=== PATIENT | male | born 1925 | race Caucasian/White ===

== ENCOUNTER 2016-08-01 12:48 | Inpatient (IN) | payer OTHER ==
[~2016-08-01] VITALS: Ht 180.3 cm; Wt 93.4 kg
[~2016-08-01 12:48] MED LIST: ADVAIR 250-501 EACH INH; ASPIRIN CHILDRE81 MG PO; ASPIRIN EC81 M1 PO; ATENOLOL25 MG PO; ATENOLOL50 M1 PO; AUGMENTIN 500M500 MG PO; AUGMENTIN 875875 MG PO; CENTRUM SILVER1 EAC3 PO; COMBIVENT1 ARO INH; DUONEB 3 MG/3 ML3 ML INH; FINASTERIDE5 M1 PO; FLOMAX0.4 M1 PO; HYDROCHLOROTH12.5 M3 PO; LASIX20 MG PO; LOSARTAN POTAS100 M1 PO; LOSARTAN-HCTZ 100-25 PO; MEDROL4 M1 PO; NIFEDIPINE ER30 M1 PO; RED YEAST RICE600 MG PO; SYMBICORT 160/41 PUF INH; Senokot S PO; TRAMADOL HCL50 M1 PO; VALTREX1000 MG PO; VITAMIN D31000 UNI2 PO
--- NOTE | 2016-08-01 12:59 | NUR ---
ARRIVED VIA AMBULANCE, ALERT ORIENTED.STATES HX COPD-ON N02 2L AT HOME. INCREASED DIFF BREATHING SINCE TUESDAY, STATES CALLED DR ABDI,STARTED ON PREDNISONE AT HOME. NO IMPROVEMENT TODAY. EKG ON ARRIVAL, 02 2L ON 2L 02.
--- NOTE | 2016-08-01 13:24 | ED DYSPNEA/ASTHMA COMPLAINT ---
History of Present Illness General Chief Complaint: Dyspnea (COPD, CHF, Other) Stated Complaint: SOB Vital Signs & Intake/Output Vital Signs & Intake/Output Vital Signs Date Time Temp Pulse Resp B/P Pulse O2 O2 Flow FiO2 Ox Delivery Rate 08/01 1321 92 Nasal 2.0L Cannula 08/01 1257 96.3 74 22 180/78 95 Nasal 2.0L Cannula Allergies Coded Allergies: codeine (Severe, N/V 12/02/15) Reconcile Medications Albuterol Sulfate/Ipratropiu (Duoneb) 3 MG/3 ML NEB 1 AER INH COPD (Reported) Aspirin (Ecotrin*) 81 MG TABLET.DR 2 TAB PO QW HEART HEALTH (Reported) Atenolol 50 MG TABLET 1 TAB PO DAILY HEART (Reported) Budesonide/Formoterol Fumara (Symbicort 160-4.5 Mcg Inhaler) 160 MCG/4.5 MCG PUF 2 PUFF INH Q12 COPD (Reported) Cyanocobalamin (Vitamin B-12) 1,000 MCG TABLET 1 TAB PO DAILY SUPPLEMENT ( Reported) Finasteride 5 MG TABLET 1 TAB PO DAILY PROSTATE (Reported) Fluticasone/Salmeterol (Advair 250-50 Diskus) 1 EACH BLST.W.DEV 1 PUF INH BID BREATHING PROBLEMS (Reported) Hydrochlorothiazide 12.5 MG CAPSULE 1 CAP PO DAILY WATER PILL (Reported) IPRATROPIUM/ALBUTEROL SULFATE (Combivent Inhaler) 14.7 GM AER.W.ADAP 1 AER INH Q4-6 PRN PRN COPD (Reported) Losartan Potassium 100 MG TABLET 1 TAB PO DAILY HEART (Reported) Methylprednisolone (Medrol) 4 MG TABLET 1 TAB PO AD SHINLGES Multivit-Min/FA/Lycopen/Lutein (Centrum Silver Tablet) 1 EACH TABLET 1 TAB PO DAILY SUPPLEMENT (Reported) Nifedipine (Nifedical XL) 30 MG TAB.ER.24 1 TAB PO DAILY HEART (Reported) Red Yeast Rice 600 MG TABLET 2 TAB PO DAILY SUPPLEMENT (Reported) Tamsulosin Hydrochloride (Flomax) 0.4 MG CAP.ER.24H 1 CAP PO DAILY PROSTATE ( Reported) Triage Note: BIBA FROM HOME, WITH C/O COUGH, CONGESTION, SAW DR MOHR AND STARTED ON PREDNISONE WITHOUT EFFECT. 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 History of MRSA: No History of VRE: No History of CDIFF: No Surgical History Surgical History: non-contributory Psychosocial History Who do you live with Family What is your primary language Samoan Tobacco Use: Quit >30 days ago ETOH Use: denies use Illicit Drug Use: denies illicit drug use Family History Family History, If Any: MOTHER FH: heart attack Progress Plan of Care: Orders Procedure Date/time Status URINALYSIS 08/01 1450 Complete TROPONIN LEVEL 08/01 1324 Complete COMPREHENSIVE METABOLIC PANEL 08/01 1324 Complete CBC WITHOUT DIFFERENTIAL 08/01 1323 Complete EKG 08/01 1249 Active Laboratory Tests 08/01/16 1450: Urine Color YEL, Urine Clarity CLEAR, Urine pH 6.0, Ur Specific [place] 1.025, Urine Protein 100 H, Urine Ketones NEG, Urine Nitrite NEG, Urine Bilirubin NEG, Urine Urobilinogen 0.2, Ur Leukocyte Esterase NEG, Ur Microscopic SEDIMENT EXAMINED, Urine RBC RARE, Ur Epithelial Cells FEW, Urine Mucus FEW, Urine Hemoglobin SMALL H, Urine Glucose NEG 08/01/16 1330: Anion Gap 13, Estimated GFR 57 L, BUN/Creatinine Ratio 20.0, Glucose 165 H, Calcium 9.2, Total Bilirubin 0.9, AST 30, ALT 42, Alkaline Phosphatase 75, Troponin I < 0.01, Total Protein 6.7, Albumin 4.0, Globulin 2.7, Albumin/ Globulin Ratio 1.5, CBC w Diff MAN DIFF ORDERED, RBC 3.15 L, MCV 106.4 H, MCH 36.1 H, RDW 16.2 H, MPV 7.7, Gran % 93.1 H, Lymphocytes % 5.0 L, Monocytes % 1.6 L, Eosinophils % 0.1, Basophils % 0.2, Absolute Granulocytes 7.4 H, Segmented Neutrophils 77 H, Band Neutrophils 17 H, Absolute Lymphocytes 0.4 L , Lymphocytes 3 L, Monocytes 3, Absolute Monocytes 0.1 L, Absolute Eosinophils 0, Absolute Basophils 0, Nucleated RBCs 1 H, Platelet Estimate ADEQUATE, Hypochromic-Microcytic 2+, Poikilocytosis 1+, Anisocytosis 1+, Macrocytic Cells 2+, PUBS MCHC 34.0 Departure Departure Condition: Stable Referrals: FAVIO HICKS MD (PCP/Family) Departure Forms: Customer Survey General Discharge Information
--- NOTE | 2016-08-01 13:25 | NUR ---
EDMUNDO CORTEZ IN TO [facility].
--- NOTE | 2016-08-01 13:41 | ED DYSPNEA/ASTHMA COMPLAINT ---
History of Present Illness General Chief Complaint: Dyspnea (COPD, CHF, Other) Stated Complaint: SOB Source: patient, EMS Exam Limitations: no limitations Vital Signs & Intake/Output Vital Signs & Intake/Output Vital Signs Date Time Temp Pulse Resp B/P Pulse O2 O2 Flow FiO2 Ox Delivery Rate 08/02 1051 Nasal 2.0L Cannula 08/02 1050 95 Nasal 2.0L Cannula 08/02 1030 62 144/62 08/02 1028 62 144/62 08/02 0649 97.8 58 18 144/62 93 Nasal 2.0L Cannula 08/02 0000 95 Nasal 2.0L Cannula 08/01 2301 78 150/80 08/01 2212 97.9 60 18 138/64 95 08/01 1923 97.6 67 24 150/80 93 Nasal 2.0L Cannula 08/01 1923 95 Nasal 2.0L Cannula 08/01 1905 97.7 112 18 138/70 95 Room Air Room Air 08/01 1641 97.1 64 18 183/79 95 Nasal 2.0L Cannula 08/01 1321 92 Nasal 2.0L Cannula ED Intake and Output 08/02 0000 08/01 1200 Intake Total 150 Output Total 200 Balance -50 Intake, Oral 150 Output, Urine 200 Patient 206 lb Weight Allergies Coded Allergies: codeine (Severe, N/V 12/02/15) Triage Note: BIBA FROM HOME, WITH C/O COUGH, CONGESTION, SAW DR MOHR AND STARTED ON PREDNISONE WITHOUT EFFECT. Triage Nurses Notes Reviewed? yes Onset: Abrupt Duration: day(s): (4), constant, continues in ED Timing: recent history HPI: 89-year-old male with a history of COPD comes into emergency room with shortness of breath has been going on for past 3-4 days getting progressively worse. 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 Patient reports any type of ambulation at all causes him to be winded. Denies any chest pain. Denies any fever. Patient has been coughing with little mucus production. Patient has oxygen at home as needed but is not on a 24 hours. Patient reports over last 24 hours he's been using (YESENIA CORTEZ,EDMUNDO) Reconcile Medications Aspirin (Ecotrin*) 81 MG TABLET.DR 2 TAB PO QW HEART HEALTH (Reported) Atenolol 50 MG TABLET 1 TAB PO DAILY HEART (Reported) Finasteride 5 MG TABLET 1 TAB PO DAILY PROSTATE (Reported) Fluticasone/Salmeterol (Advair 250-50 Diskus) 1 EACH BLST.W.DEV 1 PUF INH BID COPD (Reported) Ipratropium/Albuterol Sulfate (Iprat-Albut 0.5-3(2.5) MG/3 Ml) 0.5 MG-3 MG (2.5 MG BASE)/3 ML AMPUL.NEB 1 VIAL INH Q6H PRN COPD (Reported) Ipratropium/Albuterol Sulfate (Combivent Respimat Inhal [place]) 20 MCG-100 MCG/ ACTUATION MIST.INHAL 1 PUFF INH DAILY PRN COPD (Reported) Losartan Potassium 100 MG TABLET 1 TAB PO DAILY HEART (Reported) Nifedipine (Nifedical XL) 30 MG TAB.ER.24 1 TAB PO DAILY HEART (Reported) Red Yeast Rice 600 MG TABLET 2 TAB PO DAILY SUPPLEMENT (Reported) Tamsulosin HCl (Flomax) 0.4 MG CAP.ER.24H 1 CAP PO AT BEDTIME PROSTATE ( Reported) (HUMPHREY MCCALL,KALLI) Past History Travel History Traveled to [place] past 21 day No Medical History Any Pertinent Medical History? 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 No (EDMUNDO TOUSSAINT) Review of Systems Review of Systems Constitutional: Reports: no symptoms. EENTM: Reports: no symptoms. Respiratory: Reports: see HPI. Cardiovascular: Reports: no symptoms. GI: Reports: no symptoms. Genitourinary: Reports: no symptoms. Musculoskeletal: Reports: no symptoms. Skin: Reports: no symptoms. Neurological/Psychological: Reports: no symptoms. Hematologic/Endocrine: Reports: no symptoms. Immunologic/Allergic: Reports: no symptoms. All Other Systems: Reviewed and Negative (EDMUNDO TOUSSAINT) Physical Exam Physical Exam General Appearance: well developed/nourished, no apparent distress, alert Head: atraumatic, normal appearance Eyes: Bilateral: normal appearance. Ears, Nose, Throat: normal pharynx, normal ENT inspection, hearing grossly normal Neck: normal inspection Respiratory: no respiratory distress, decreased breath sounds, wheezing Cardiovascular: regular rate/rhythm Extremities: normal inspection Neurologic/Psych: awake, alert, oriented x 3 Skin: intact, normal color Core Measures ACS in differential dx? No Severe Sepsis Present: No Septic Shock Present: No (EDMUNDO TOUSSAINT) Progress Differential Diagnosis: asthma, AMI, bronchitis, costochondritis, CHF, COPD, musculoskeletal pain, pericarditis, pulmonary embolism, pneumonia, pneumothorax, rib fracture, unstable angina Plan of Care: Orders Procedure Date/time Status Heart Healthy Diet 08/02 B Active RT: Reevaluation 08/02 1007 Active RT: Evaluation 08/02 1007 Active Change service to 08/02 0755 Active CBC WITHOUT DIFFERENTIAL 08/02 0600 Complete BASIC ELECTROLYTES PLUS BUN&CR 08/02 0600 Complete THERAPIST ORDERS 08/02 UNK Complete OXYGEN SETUP (GEN) 08/02 UNK Complete PT Evaluate & Treat 08/02 UNK Active Vital Signs 08/01 1925 Active Teach/Educate 08/01 1925 Active Nutritional Intake, Monitor 08/01 1925 Active Isolation 08/01 192 Active Intake & Output 08/01 192 Active Patient Care Conference 08/01 192 Active Activity/Ambulation 08/01 192 Active Pathway - chart 08/01 1849 Active RAPID VIRAL INFLUENZA A 08/01 1823 Complete Pathway - chart 08/01 1821 Active Patient Data 08/01 1821 Active Code Status 08/01 1821 Active Admit to inpatient 08/01 1716 Active Code Status 08/01 1716 Complete Patient Data 08/01 1614 Active Intake & Output 08/01 1552 Active URINALYSIS 08/01 1450 Complete TROPONIN LEVEL 08/01 1324 Complete COMPREHENSIVE METABOLIC PANEL 08/01 1324 Complete CBC WITHOUT DIFFERENTIAL 08/01 1324 Complete TRC EVALUATION (GEN) 08/01 UNK Complete House Staff 08/01 UNK Active VTE Mechanical Prophylaxis 08/01 UNK Active Vital Signs 01/08 UNK Active Current Medications Sig/Melquiades Start time Last Medication Dose Stop Time Status Admin Methylprednisolone 40 MG Q12 08/020 AC (Solumedrol) Acetaminophen 650 MG Q6P PRN 08/01 1900 AC (Tylenol) Laboratory Tests 08/02/16 0730: Anion Gap 15, Estimated GFR 57 L, BUN/Creatinine Ratio 24.2, CBC w Diff NO MAN DIFF REQ, RBC 3.30 L, MCV 106.1 H, MCH 35.9 H, RDW 15.1 H, MPV 7.8, Gran % 83.8 H, Lymphocytes % 12.1 L, Monocytes % 3.8, Eosinophils % 0.1, Basophils % 0.2, Absolute Granulocytes 4.2, Absolute Lymphocytes 0.6 L, Absolute Monocytes 0.2, Absolute Eosinophils 0, Absolute Basophils 0, PUBS MCHC 33.9 08/01/16 1450: Urine Color YEL, Urine Clarity CLEAR, Urine pH 6.0, Ur Specific [place] 1.025, Urine Protein 100 H, Urine Ketones NEG, Urine Nitrite NEG, Urine Bilirubin NEG, Urine Urobilinogen 0.2, Ur Leukocyte Esterase NEG, Ur Microscopic SEDIMENT EXAMINED, Urine RBC RARE, Ur Epithelial Cells FEW, Urine Mucus FEW, Urine Hemoglobin SMALL H, Urine Glucose NEG 08/01/16 1330: Anion Gap 13, Estimated GFR 57 L, BUN/Creatinine Ratio 20.0, Glucose 165 H, Calcium 9.2, Total Bilirubin 0.9, AST 30, ALT 42, Alkaline Phosphatase 75, Troponin I < 0.01, Total Protein 6.7, Albumin 4.0, Globulin 2.7, Albumin/ Globulin Ratio 1.5, CBC w Diff MAN DIFF ORDERED, RBC 3.15 L, MCV 106.4 H, MCH 36.1 H, RDW 16.2 H, MPV 7.7, Gran % 93.1 H, Lymphocytes % 5.0 L, Monocytes % 1.6 L, Eosinophils % 0.1, Basophils % 0.2, Absolute Granulocytes 7.4 H, Segmented Neutrophils 77 H, Band Neutrophils 17 H, Absolute Lymphocytes 0.4 L , Lymphocytes 3 L, Monocytes 3, Absolute Monocytes 0.1 L, Absolute Eosinophils 0, Absolute Basophils 0, Nucleated RBCs 1 H, Platelet Estimate ADEQUATE, Hypochromic-Microcytic 2+, Poikilocytosis 1+, Anisocytosis 1+, Macrocytic Cells 2+, PUBS MCHC 34.0 Diagnostic Imaging: Viewed by Me: Radiology Read. Discussed w/RAD: Radiology Read. Radiology Impression: EXAM TYPE: RAD - XRY-PORTABLE CHEST XRAY EXAMINATION: XR PORTABLE CHEST CLINICAL INFORMATION: Shortness of breath, cough and congestion. COPD exacerbation. COMPARISON: 12/02/[address] 01/23/2016. TECHNIQUE: AP portable upright view of the chest at 1:45 PM FINDINGS: Stable heart and mediastinum with enlarged cardiac silhouette and vascular ectasia. No pulmonary edema. Stable hyperinflation. Moderate emphysema on recent chest CT. Compressive atelectasis at the bases due to upper zone hyperinflation is a chronic and stable. No pneumonia. No effusion or pneumothorax. IMPRESSION: No acute cardiopulmonary process. Emphysema. Cardiomegaly Initial ED EKG: normal p-waves, normal sinus rhythm, rate (73) (EDMUNDO TOUSSAINT) Departure Departure Disposition: STILL A PATIENT Condition: Stable Clinical Impression Primary Impression: COPD exacerbation Secondary Impressions: Hypoxia Referrals: FAVIO HICKS MD (PCP/Family) Departure Forms: Customer Survey General Discharge Information Admission Note Spoke With: REHAN MCCALL,QUISPE Documentation of Exam: Documentation of any treatments & extenuating circumstances including Concerns Regarding Discharge (functional status, medication knowledge or non-compliance, living conditions, etc.) that warrant an admission rather than observation: Patient will require IV steroids. Supplemental oxygen. Pulmonary consultation. Patient is short of breath on exertion. Patient would do poorly as an outpatient. Patient lives by himself. Below his normal baseline function. (EDMUNDO TOUSSAINT) PA/TRIMMER HAND Co-Sign Statement Statement: ED Attending supervision documentation- [X] I saw and evaluated the patient. I have also reviewed all the pertinent lab results and diagnostic results. I agree with the findings and the plan of care as documented in the PA's/TRIMMER HAND's documentation. [X] I have reviewed the ED Record and agree with the PA's/TRIMMER HAND's documentation. [] Additions or exceptions (if any) to the PAs/TRIMMER HAND's note and plan are summarized below: [] (HUMPHREY MCCALL,KALLI) Critical Care Note Critical Care Note Critical Care Time: non-applicable (EDMUNDO TOUSSAINT)
--- NOTE | 2016-08-01 13:45 | NUR ---
PCXR DONE. BLOODWORK, SST,LAV,BLUE,[place] AND PINK TOP TUBES SENT TO LAB.
[2016-08-01 14:06] LABS: ABSOLUTE BASOPHIL COUNT 0 /CUMM (0.0-0.2); ABSOLUTE EOSINOPHIL COUNT 0 /CUMM (0.0-0.7); ABSOLUTE GRANULOCYTE CT 7.4 /CUMM (1.4-6.5); ABSOLUTE LYMPH COUNT 0.4 /CUMM (1.2-3.4); ABSOLUTE MONOCYTE COUNT 0.1 /CUMM (0.10-0.60); BASOPHIL % 0.2 % (0.0-2.0); EOSINOPHIL % 0.1 % (0-5); GRANULOCYTE % 93.1 % (42.2-75.2); HEMATOCRIT 33.5 % (42-52); MEAN CORPUSCULAR HGB 36.1 PG (27.0-31.0); MEAN CORPUSCULAR VOLUME 106.4 FL (80.0-94.0); MEAN PLATELET VOLUME 7.7 FL (7.4-10.4); PLATELET COUNT 237 /CUMM (130-400); RBC DISTRIBUTION WIDTH 16.2 % (11.5-14.5); RED BLOOD CELL CT 3.15 /CUMM (4.70-6.10)
--- NOTE | 2016-08-01 14:21 | RADIOLOGY REPORT ---
EXAMINATION: XR PORTABLE CHEST CLINICAL INFORMATION: Shortness of breath, cough and congestion. COPD exacerbation. COMPARISON: 12/02/[address] 01/23/2016. TECHNIQUE: AP portable upright view of the chest at 1:45 PM FINDINGS: Stable heart and mediastinum with enlarged cardiac silhouette and vascular ectasia. No pulmonary edema. Stable hyperinflation. Moderate emphysema on recent chest CT. Compressive atelectasis at the bases due to upper zone hyperinflation is a chronic and stable. No pneumonia. No effusion or pneumothorax. IMPRESSION: No acute cardiopulmonary process. Emphysema. Cardiomegaly
[2016-08-01] MEDS ORDERED: VITAMIN B-121000 MC3 PO (14:22)
--- NOTE | 2016-08-01 14:53 | NUR ---
URINE TRIO SENT TO LAB.
--- NOTE | 2016-08-01 15:12 | NUR ---
WALKING O2 ASSESMENT DONE 02 SAT 92 % RA PULSE 74 WALKING 02 SAT DROPPED TO 88%, PULSE REMAINED THE SAME.
--- NOTE | 2016-08-01 15:51 | NUR ---
PA YESENIA TO BEDSIDE TO DISCUSS RESULTS AND POC. PT AGREEABLE TO STAY IN HOSPITAL FOR FURTHER CARE WITH PHARMACEUTICAL ENGINEER.
--- NOTE | 2016-08-01 16:40 | NUR ---
PT MEDICATED PER EMAR.
--- NOTE | 2016-08-01 18:29 | NUR ---
PT HAS BED ASSIGNMENT 232. RN NOTIFIED.
--- NOTE | 2016-08-01 18:49 | History & Physical ---
REHAN MCCALL,[facility] 08/01/16 1469: General Information and HPI MD Statement: I have seen and personally examined JUSTA MCDONALD and documented this H&P. The patient is a 89 year old M who presented with a patient stated chief complaint of shortness of breath. Source of Information: patient Exam Limitations: no limitations History of Present Illness: This is a 89-year-old male with a past medical history of a COPD/using intermittent home oxygen, hypertension, borderline diabetes came in with a chief complaint of increased shortness of breath over the past couple of days. As per patient 4 days ago he first felt that his inhaler or not enough to keep up with his shortness of breath and he called Dr. Monica Saldivar office and he was prescribed short prednisone course, he has been taking the steroid pills but it did not have any effect on his breathing and he continued to be short of breath and decided to come to ER for further evaluation. He denied any cough, fever, chills. He denied any nausea, vomiting, abdominal pain, changes in bowel movements, urinary symptoms, sick contacts, recent travels. He follows Dr. Saldivar as his head silverman and Dr. Guardado as his nuclear physician. Allergies/Medications Allergies: Coded Allergies: codeine (Severe, N/V 12/02/15) Home Med list Aspirin (Ecotrin*) 81 MG TABLET. 2 TAB PO QW HEART HEALTH (Reported) Atenolol 50 MG TABLET 1 TAB PO DAILY HEART (Reported) Finasteride 5 MG TABLET 1 TAB PO DAILY PROSTATE (Reported) Fluticasone/Salmeterol (Advair 250-50 Diskus) 1 EACH BLST.W.DEV 1 PUF INH BID COPD (Reported) Ipratropium/Albuterol Sulfate (Iprat-Albut 0.5-3(2.5) MG/3 Ml) 0.5 MG-3 MG (2.5 MG BASE)/3 ML AMPUL.NEB 1 VIAL INH Q6H PRN COPD (Reported) Ipratropium/Albuterol Sulfate (Combivent Respimat Inhal [place]) 20 MCG-100 MCG/ ACTUATION MIST.INHAL 1 PUFF INH DAILY PRN COPD (Reported) Losartan Potassium 100 MG TABLET 1 TAB PO DAILY HEART (Reported) Nifedipine (Nifedical XL) 30 MG TAB.ER.24 1 TAB PO DAILY HEART (Reported) Red Yeast Rice 600 MG TABLET 2 TAB PO DAILY SUPPLEMENT (Reported) Tamsulosin HCl (Flomax) 0.4 MG CAP.ER.24H 1 CAP PO AT BEDTIME PROSTATE ( Reported) Compliance With Home Meds: GOOD Past History Travel History Traveled to [place] past 21 day No Medical History Neurological: NONE EENT: NONE Cardiovascular: hypertension Respiratory: COPD Gastrointestinal: NONE Hepatic: NONE Renal: NONE Musculoskeletal: NONE Psychiatric: NONE Endocrine: diabetes Blood Disorders: NONE Cancer(s): NONE HEADLINER INSTALLER/Reproductive: NONE History of MRSA: No History of VRE: No History of CDIFF: No Surgical History Surgical History: non-contributory Past Family/Social History Family History Relations & Conditions if any MOTHER FH: heart attack Psychosocial History Where do you live? Home Who Do You Live With? self Services at Home: None Primary Language: Kuwaiti Smoking Status: Former Smoker ETOH Use: denies use Illicit Drug Use: denies illicit drug use Living Will? yes Functional Ability ADLs Independent: dressing, eating, toileting, bathing. Ambulation: independent IADLs Independent: shopping, housework, finances, food prep, telephone, transportation , medication admin. Review of Systems Review of Systems Constitutional: Reports: see HPI. Exam & Diagnostic Data Last 24 Hrs of Vital Signs/I&O Vital Signs Date Time Temp Pulse Resp B/P Pulse O2 O2 Flow FiO2 Ox Delivery Rate 08/01 1905 97.7 112 18 138/70 95 Room Air Room Air 08/01 1641 97.1 64 18 183/79 95 Nasal 2.0L Cannula 08/01 1321 92 Nasal 2.0L Cannula 08/01 1257 96.3 74 22 180/78 95 Nasal 2.0L Cannula Intake & Output 08/01 1600 08/01 0800 08/01 0000 Intake Total Output Total Balance Patient 93.44 kg Weight Physical Exam General Appearance Alert, Oriented X3, Cooperative, No Acute Distress Cardiovascular Regular Rate, Normal S1, Normal S2, No Murmurs Lungs EXP WHEEZE B/L Abdomen Normal Bowel Sounds, Soft, No Tenderness Extremities No Clubbing, No Cyanosis, No Edema Last 24 Hrs of Labs/Miguel: Laboratory Tests 08/01/16 1450: Urine Color YEL, Urine Clarity CLEAR, Urine pH 6.0, Ur Specific [place] 1.025, Urine Protein 100 H, Urine Ketones NEG, Urine Nitrite NEG, Urine Bilirubin NEG, Urine Urobilinogen 0.2, Ur Leukocyte Esterase NEG, Ur Microscopic SEDIMENT EXAMINED, Urine RBC RARE, Ur Epithelial Cells FEW, Urine Mucus FEW, Urine Hemoglobin SMALL H, Urine Glucose NEG 08/01/16 1330: Anion Gap 13, Estimated GFR 57 L, BUN/Creatinine Ratio 20.0, Glucose 165 H, Calcium 9.2, Total Bilirubin 0.9, AST 30, ALT 42, Alkaline Phosphatase 75, Troponin I < 0.01, Total Protein 6.7, Albumin 4.0, Globulin 2.7, Albumin/ Globulin Ratio 1.5, CBC w Diff MAN DIFF ORDERED, RBC 3.15 L, MCV 106.4 H, MCH 36.1 H, RDW 16.2 H, MPV 7.7, Gran % 93.1 H, Lymphocytes % 5.0 L, Monocytes % 1.6 L, Eosinophils % 0.1, Basophils % 0.2, Absolute Granulocytes 7.4 H, Segmented Neutrophils 77 H, Band Neutrophils 17 H, Absolute Lymphocytes 0.4 L , Lymphocytes 3 L, Monocytes 3, Absolute Monocytes 0.1 L, Absolute Eosinophils 0, Absolute Basophils 0, Nucleated RBCs 1 H, Platelet Estimate ADEQUATE, Hypochromic-Microcytic 2+, Poikilocytosis 1+, Anisocytosis 1+, Macrocytic Cells 2+, PUBS MCHC 34.0 Assessment/Plan Assessment: This is a 89-year-old male with a past medical history of a COPD, hypertension, borderline diabetes came in with a chief complaint of increased shortness of breath over the past couple of days. Which is upon presentation temperature 96.3, pulse 74, respiratory rate 22, blood pressure 180/78, satting in high 90s on Pertinent labs H&H 11.4 and 33.5, creatinine 1.2, BUN 24. Chest x-ray showed no acute cardiopulmonary process. We'll admit the patient to general floor and monitor for the following conditions. Acute exacerbation of COPD: Oxygen supplementation as needed to keep saturation above 90. TRC/nebs as needed Started on IV Solu-Medrol 40 mg every 8 Started on azithromycin 250 mg daily Pulmonology consult with Dr. Saldivar in the morning History of hypertension: Continue home dose of nifedipine 30 mg daily and losartan 100 mg daily, atenolol 50 mg daily Benign prostatic hypertrophy: We'll continue home dose of finasteride 5 mg daily Diet : heart healthy Patient is DNR/DNI As Ranked By This Provider Problem List: 1. DVT prophylaxis 2. HTN (hypertension) 3. COPD (chronic obstructive pulmonary disease) 4. BPH (benign prostatic hyperplasia) Core Measures/Miscellaneous Acute Coronary Syndrome ACS Diagnosis: No Cerebrovascular Accident CVA/TIA Diagnosis: No Congestive Heart Failure CHF Diagnosis: No Venous Thromboembolism VTE Risk Factors: Acute medical illness, Age > 40 VTE Prophylaxis Ordered Inpt: Pharm- Heparin No Mech VTE prophylaxis d/t: No contraindications No VTE Pharm Prophylaxis d/t: No contraindications VTE Diagnosis: No VTE Type: NONE VTE Confirmed by (Test): NONE Severe Sepsis Severe Sepsis Present: No Septic Shock Septic Shock Present: No Miscellaneous Documentation Attending Case Discussed With: BRITTANEY VAN MD Primary Care Physician: FAVIO HICKS MD Patient sees these Specialists . Level of Patient Care: General Medicine BRITTANEY VAN MD 08/01/161943: Attending MD Review Statement Attending Statement Attending MD Statement: examined this patient, discuss w/resident/PA/SECURITY CONTROL ROOM OFFICER, agreed w/resident/PA/SECURITY CONTROL ROOM OFFICER, reviewed EMR data (avail), discussed with nursing, reviewed images Attending Assessment/Plan: 89-year-old male with a past medical history of hypertension, COPD intermittently using home oxygen, borderline diabetes who presented to the ED with complaints of increased difficulty in breathing over the last 4-5 days, failed out patient therapy with steroids from Dr. Womack. Patient is a non smoker, denies any sick contacts, chest pain, palpitations, any urinary or bowel irregularities. On examination he was found to be afebrile, AOX3, S1S2 audible with no murmurs, expiratory wheeze on lung examination with no lower extremity edema, lab work with no leucocytosis, chest xray with no infilatration Problem List: 1. COPD 2. Hypertension Plan: - will admit to the [facility] for COPD exacerbation - will start on IV solumedrol 40 mg IV Q8, - emprirical treatment with Azithromycin - TRC nebs - rapid flu - supplemental oxygen to keep O2 sat> 92% - continue the rest of her home medications - S[facility] for DVT prophylaxis - DNI/DNR DENIA ABEBE MD 08/01/162025: Resident Review Statement Resident Statement: examined this patient, discussed with spring intern, agreed with spring intern Other Findings: This is an 89-year-old male with a past medical history of hypertension, COPD intermittently using home oxygen, borderline diabetes who presented to the ED with complaints of increased difficult a breathing over the last 4-5 days. He called Steven Saldivar MD 2 days ago and was prescribed Medrol Dosepak which he states did not improve his symptoms. He presented to the ED because he continued to use his nebulizer more than 2-4 times per day. Does not report any sick contacts, does not smoke, denies any chest pain, palpitations, abdominal pain or trouble with urination or bowel movements. Problem list: * COPD exacerbation * Hypertension * BPH Plan: * Admit to general medicine for COPD exacerbation * Solu-Medrol 40 every 8, azithromycin * Continue home medication * Please inform Drs. Saldivar/Diamond in the a.m. * DVT prophylaxis: Heparin subcutaneous * Pain pathway: Tylenol when necessary * CODE STATUS: DNR/DNI
[2016-08-01] MEDS ORDERED: IPRAT-ALBUT 0.5-3 ML INH (18:58)
[2016-08-01] MEDS ORDERED: COMBIVENT RESPIM4 GM INH (18:59)
--- NOTE | 2016-08-01 19:08 | NUR ---
REPORT GIVEN TO RADHA RUIZ. [facility] CALLED FOR PT TRANSPORT.
[2016-08-01 19:23] VITALS: BP 150/80
--- NOTE | 2016-08-01 19:26 | Admission Certification ---
Admission Certification Certification Statement - As attending physician, I certify that at the time of - admission, based on clinical presentation, severity of - symptoms, need for further diagnostic testing and - therapeutic interventions, and risk of adverse outcomes - without in-hospital treatment, in my clinical assessment, - this patient requires an acute hospital stay for a minimum - of two nights or longer. I have also considered psychsocial - factors such as support system, advanced age, financial - issues, cognitive issues, and failed out-patient treatments, - past re-admission history, safety of patient, and lack of - compliance as applicable. Specific rationale supporting this admission is: COPD exacerbation
[2016-08-01 22:12] VITALS: BP 138/64
--- NOTE | 2016-08-02 00:59 | NUR ---
1922 PATIENT ARRIVED TO FLOOR BED LOW AND LOCKED. CALL LIGHT WITHIN REACH. ALERT AND ORIENTED X 3. VITAL SIGNS STABLE. ON 2L O2 VIA NC NO DISTRESS NOTED. WILL CONTINUE TO MONITOR
[2016-08-02 06:49] VITALS: BP 144/62
--- NOTE | 2016-08-02 07:37 | PN- Housestaff ---
REHAN MCCALL,[facility] 08/02/16 0737: Subjective Follow-up For: COPD exacerbation Subjective: Patient seen and examined this morning. He was sitting comfortably in chair eating his breakfast. In no acute distress. No shortness of breath, but remains on 2 L nasal cannula oxygen saturating high 90s. Afebrile other vitals remained within normal limits. No other complaints Review of Systems Constitutional: Denies: chills, fever. Cardiovascular: Denies: chest pain, palpitations. Respiratory: Reports: see HPI, cough, short of breath, sputum production. Gastrointestinal: Denies: abdominal pain, constipation, diarrhea, nausea, vomiting. Genitourinary: Denies: dysuria, frequency. Objective Last 24 Hrs of Vital Signs/I&O Vital Signs Date Time Temp Pulse Resp B/P Pulse O2 O2 Flow FiO2 Ox Delivery Rate 08/02 1414 97.4 63 20 140/70 95 08/02 1051 Nasal 2.0L Cannula 08/02 1050 95 Nasal 2.0L Cannula 08/02 1030 62 144/62 08/02 1028 62 144/62 08/02 0649 97.8 58 18 144/62 93 Nasal 2.0L Cannula 08/02 0000 95 Nasal 2.0L Cannula 08/01 2301 78 150/80 08/01 2212 97.9 60 18 138/64 95 08/01 1923 97.6 67 24 150/80 93 Nasal 2.0L Cannula 08/01 1923 95 Nasal 2.0L Cannula 08/01 1905 97.7 112 18 138/70 95 Room Air Room Air Intake & Output 08/02 1600 08/02 0800 08/02 0000 Intake Total 240 150 Output Total 200 Balance 240 -50 Intake, Oral 240 150 Output, Urine 200 Patient 93.44 kg Weight Physical Exam General Appearance: Alert, Oriented X3, Cooperative, No Acute Distress Cardiovascular: Regular Rate, Normal S1, Normal S2 Lungs: mild expiratory wheeze bilaterally Abdomen: Normal Bowel Sounds, Soft, No Tenderness Extremities: No Clubbing, No Cyanosis, No Edema Current Medications: Current Medications Sig/Melquiades Start time Last Medication Dose Route Stop Time Status Admin Acetaminophen 650 MG Q6P PRN 08/01 1900 AC PO Albuterol Sulfate 3 ML TID 08/02 1600 AC 08/02 INH 1049 Aspirin Buffered 162 MG ONCE A WEEK 08/01 1845 AC 08/01 PO 2300 Atenolol 50 MG DAILY 08/02 1000 AC 08/02 PO 1031 Azithromycin 500 MG DAILY@1900 08/01 1900 AC 08/01 Sodium Chloride 250 ML IV 2338 Finasteride 5 MG DAILY 08/02 1000 AC 08/02 PO 1029 Guaifenesin 600 MG Q12 08/02 1000 AC 08/02 PO 1030 Heparin Sodium 5,000 UNIT Q8 08/01 2200 AC 08/02 (Porcine) SC 1601 Ipratropium [place] 2.5 ML TID 08/02 1600 AC 08/02 INH 1049 Losartan Potassium 100 MG DAILY 08/02 1000 AC 08/02 PO 1028 Methylprednisolone 40 MG Q12 08/02 2200 AC IV Methylprednisolone 40 MG Q8 08/01 2200 TX 08/02 IV 0533 Nifedipine 30 MG DAILY 08/02 1000 AC 08/02 PO 1030 Patient Medication 1 ED .STK-MED ONE 08/02 1358 [facility] ED 08/02 1359 Patient Medication 1 UNIT ONE NR 08/01 1900 [facility] ED 08/01 193 Patient Medication 1 UNIT ONE NR 08/01 1900 [facility] ED 08/01 1930 Patient Medication 1 UNIT ONE NR 08/01 1900 [facility] ED 08/01 1930 Patient Medication 1 UNIT ONE NR 08/01 1830 [facility] ED 08/01 1900 Tamsulosin HCl 0.4 MG AT BEDTIME 08/01 220 AC 08/01 PO 2301 Last 24 Hrs of Lab/Miguel Results Last 24 Hrs of Labs/Mics: Laboratory Tests 08/02/16 0730: Anion Gap 15, Estimated GFR 57 L, BUN/Creatinine Ratio 24.2, CBC w Diff NO MAN DIFF REQ, RBC 3.30 L, MCV 106.1 H, MCH 35.9 H, RDW 15.1 H, MPV 7.8, Gran % 83.8 H, Lymphocytes % 12.1 L, Monocytes % 3.8, Eosinophils % 0.1, Basophils % 0.2, Absolute Granulocytes 4.2, Absolute Lymphocytes 0.6 L, Absolute Monocytes 0.2, Absolute Eosinophils 0, Absolute Basophils 0, PUBS MCHC 33.9 Assessment/Plan Assessment: This is a 89-year-old male with a past medical history of a COPD, hypertension, borderline diabetes came in with a chief complaint of increased shortness of breath over the past couple of days. Which is upon presentation temperature 96.3, pulse 74, respiratory rate 22, blood pressure 180/78, satting in high 90s on Pertinent labs H&H 11.4 and 33.5, creatinine 1.2, BUN 24. Chest x-ray showed no acute cardiopulmonary process. We'll admit the patient to general floor and monitor for the following conditions. Acute exacerbation of COPD: Oxygen supplementation as needed to keep saturation above 90. TRC/nebs as needed Started on IV Solu-Medrol 40 mg every 8>> tapered to every 12 hr Started on azithromycin 250 mg daily History of hypertension: Continue home dose of nifedipine 30 mg daily and losartan 100 mg daily, atenolol 50 mg daily Benign prostatic hypertrophy: We'll continue home dose of finasteride 5 mg daily Diet : heart healthy Patient is DNR/DNI Problem List: 1. COPD exacerbation Pain Ratin Pain Location: none Pain Goal: Remain pain free Pain Plan: Mild pain pathway Tomorrow's Labs & Rationales: None JIMBO MCCALL,[facility] 08/02/16 1448: Attending MD Review Statement Attending Statement Attending MD Statement: examined this patient, discuss w/resident/PA/DIRECTOR OF EMPLOYER SERVICES, agreed w/resident/PA/DIRECTOR OF EMPLOYER SERVICES, reviewed EMR data (avail), discussed with nursing, discussed with case mgmt, amended to note Attending Assessment/Plan: Patient seen and examined. Resting comfortably and not in acute distress. He reports feeling better. On examination he has fair entry bilaterally with mild expiratory rhonchi. We will continue bronchodilator therapy and intravenous steroids. He continues to do well tomorrow we'll begin his steroid taper. Continue oxygen supplementation as needed.
[2016-08-02 08:41] LABS: ABSOLUTE BASOPHIL COUNT 0 /CUMM (0.0-0.2); ABSOLUTE EOSINOPHIL COUNT 0 /CUMM (0.0-0.7); ABSOLUTE GRANULOCYTE CT 4.2 /CUMM (1.4-6.5); ABSOLUTE LYMPH COUNT 0.6 /CUMM (1.2-3.4); ABSOLUTE MONOCYTE COUNT 0.2 /CUMM (0.10-0.60); BASOPHIL % 0.2 % (0.0-2.0); EOSINOPHIL % 0.1 % (0-5); GRANULOCYTE % 83.8 % (42.2-75.2); MEAN CORPUSCULAR HGB 35.9 PG (27.0-31.0); MEAN CORPUSCULAR HGB CONC 33.9 G/DL (33.0-37.0); MEAN CORPUSCULAR VOLUME 106.1 FL (80.0-94.0); MEAN PLATELET VOLUME 7.8 FL (7.4-10.4); PLATELET COUNT 257 /CUMM (130-400); RBC DISTRIBUTION WIDTH 15.1 % (11.5-14.5)
[2016-08-02 14:14] VITALS: BP 140/70
[2016-08-02 22:22] VITALS: BP 120/70
[2016-08-03 07:03] VITALS: BP 120/70
--- NOTE | 2016-08-03 07:40 | PN- Housestaff ---
REHAN MCCALL,[facility] 08/03/16 0740: Subjective Follow-up For: COPD exacerbation Subjective: Patient seen and examined this morning. He was sitting in his chair no acute distress eating his breakfast. He reported feeling very good, names on 2 L of nasal cannula oxygen setting and high 90s. Afebrile vitals within normal limits. He endorses nonproductive cough. Review of Systems Constitutional: Denies: chills, fever. Cardiovascular: Denies: chest pain, palpitations. Respiratory: Reports: see HPI, cough. Denies: short of breath, sputum production. Gastrointestinal: Denies: abdominal pain, constipation, diarrhea, nausea, vomiting. Objective Last 24 Hrs of Vital Signs/I&O Vital Signs Date Time Temp Pulse Resp B/P Pulse O2 O2 Flow FiO2 Ox Delivery Rate 08/03 1428 97.1 45 22 152/60 98 Nasal 6.0L Cannula 08/03 1342 96 Nasal 2.0L Cannula 08/03 0931 62 142/70 08/03 0930 62 142/70 08/03 0800 96 Nasal 2.0L Cannula 08/03 0703 97.6 67 19 120/70 96 Nasal 2.0L Cannula 08/03 0000 Nasal 2.0L Cannula 08/02 2222 97.4 67 20 120/70 96 Nasal Cannula 08/02 2107 60 138/60 08/02 1955 95 Nasal 2.0L Cannula Intake & Output 08/03 1600 08/03 0800 08/03 0000 Intake Total 1000 100 120 Output Total Balance 1000 100 120 Intake, IV 20 Intake, Oral 1000 100 100 Physical Exam General Appearance: Alert, Oriented X3, Cooperative, No Acute Distress Cardiovascular: Regular Rate, Normal S1, Normal S2, No Murmurs Lungs: Clear to Auscultation, Normal Air Movement Abdomen: Normal Bowel Sounds, Soft, No Tenderness Extremities: No Clubbing, No Cyanosis, No Edema Current Medications: Current Medications Sig/Melquiades Start time Last Medication Dose Route Stop Time Status Admin Acetaminophen 650 MG Q6P PRN 08/01 1899 AC PO Albuterol Sulfate 3 ML TID 08/02 1600 AC 08/03 INH 1340 Aspirin Buffered 162 MG ONCE A WEEK 08/01 1845 AC 08/01 PO 2300 Atenolol 50 MG DAILY 08/02 1000 AC 08/03 PO 0930 Azithromycin 500 MG DAILY@1900 08/01 1900 AC 08/02 Sodium Chloride 250 ML IV 1838 Finasteride 5 MG DAILY 08/02 1000 AC 08/03 PO 0930 Guaifenesin 600 MG Q12 08/02 1000 AC 08/03 PO 0930 Heparin Sodium 5,000 UNIT Q8 08/01 220 AC 08/03 (Porcine) SC 1348 Ipratropium [place] 2.5 ML TID 08/02 1600 AC 08/03 INH 1340 Losartan Potassium 100 MG DAILY 08/02 1000 AC 08/03 PO 0931 Methylprednisolone 40 MG Q12 08/02 2200 AC 08/03 IV 0930 Nifedipine 30 MG DAILY 08/02 1000 AC 08/03 PO 0930 Tamsulosin HCl 0.4 MG AT BEDTIME 08/01 2199 AC 08/02 PO 2107 Assessment/Plan Assessment: This is a 89-year-old male with a past medical history of a COPD, hypertension, borderline diabetes came in with a chief complaint of increased shortness of breath over the past couple of days. Which is upon presentation temperature 96.3, pulse 74, respiratory rate 22, blood pressure 180/78, satting in high 90s on Pertinent labs H&H 11.4 and 33.5, creatinine 1.2, BUN 24. Chest x-ray showed no acute cardiopulmonary process. We'll admit the patient to general floor and monitor for the following conditions. Acute exacerbation of COPD: Oxygen supplementation as needed to keep saturation above 90. TRC/nebs as needed Started on IV Solu-Medrol 40 mg every 8>> tapered to every 12 hr, start by mouth tomorrow and then advise patient to complete the taper upon discharge. He is advised to follow-up with his vision and Dr. Saldivar upon discharge. Azithromycin 500 mg daily, to complete a five-day course. History of hypertension: Continue home dose of nifedipine 30 mg daily and losartan 100 mg daily, atenolol 50 mg daily Benign prostatic hypertrophy: We'll continue home dose of finasteride 5 mg daily Diet : heart healthy Patient is DNR/DNI Problem List: 1. COPD (chronic obstructive pulmonary disease) 2. HTN (hypertension) 3. COPD exacerbation Pain Ratin Pain Location: None Pain Goal: Remain pain free Pain Plan: Mild pain pathway Tomorrow's Labs & Rationales: None JIMBO MCCALL,[facility] 08/03/16 1210: Attending MD Review Statement Attending Statement Attending MD Statement: examined this patient, discuss w/resident/PA/BEER COOLER, agreed w/resident/PA/BEER COOLER, reviewed EMR data (avail), discussed with nursing, discussed with case mgmt, amended to note Attending Assessment/Plan: Patient reports feeling much better. Reports mild cough. Denies dizziness on exertion while ambulating with in the room. Denies chest pain. He remains afebrile and hemodynamically stable. He saturating 96% on 2 L of oxygen. On examination he has adequate entry bilaterally with no added sounds. At this point we will proceed to weaning down his Solu-Medrol to twice daily today. If patient continues to do well he'll be transitioned to prednisone tomorrow and possibly discharged. I have advised that he should ambulate outside of his room today and we will assess his pulse oximetry on room air at rest and with ambulation. Discontinue IV azithromycin and begin on oral azithromycin to complete a total of 5 days of therapy.
--- NOTE | 2016-08-03 11:15 | Patient Discharge Instructions ---
Discharge Instructions General Discharge Information You were seen/treated for: COPD exacerbation Special Instructions: Please schedule a follow-up appointment with your Primary care physician and Steven Saldivar MD in one week. Please finish prednisone taper as directed Diet Recommended Diet: Heart Healthy Activity Activity Self Limited: Yes Acute Coronary Syndrome Inclusion Criteria At DC or during hospital stay patient has or had the following: ACS DIAGNOSIS No Discharge Core Measures Meds if any: Prescribed or Continued at Discharge Meds if any: NOT Prescribed or Continued at Discharge Congestive Heart Failure Inclusion Criteria At DC or during hospital stay patient has or had the following: CHF DIAGNOSIS No Discharge Core Measures Meds if any: Prescribed or Continued at Discharge Meds if any: NOT Prescribed or Continued at Discharge Cerebrovascular accident Inclusion Criteria At DC or during hospital stay patient has or had the following: CVA/TIA Diagnosis No Discharge Core Measures Meds if any: Prescribed or Continued at Discharge Meds if any: NOT Prescribed or Continued at Discharge Venous thromboembolism Inclusion Criteria VTE Diagnosis No VTE Type NONE VTE Confirmed by (Test) NONE Discharge Core Measures - Per Current guidelines, there needs to be overlap - treatment for the first 5 days of Warfarin therapy. - If discharged on Warfarin prior to 5 days of - overlap therapy, the patient will need to be - assessed for post discharge needs including - *Post discharge parental anticoagulation - *Warfarin and/or parental anticoagulation education - *Follow up date to check INR post discharge At least 5 days overlap therapy as Inpatient No Meds if any: Prescribed or Continued at Discharge Note: Overlap Therapy is Warfarin and Anticoagulant Meds if any: NOT Prescribed or Continued at Discharge
[2016-08-03] MEDS ORDERED: PREDNISONE10 M2 PO (11:19)
[2016-08-03] MEDS ORDERED: AZITHROMYCIN250 M1 PO (11:45)
[2016-08-03 14:28] VITALS: BP 152/60
--- NOTE | 2016-08-03 14:59 | NUR ---
O2 SAT 85 ON ROOM AIR WITH AMBULATION, O2 SAT 92 ON RA AT REST, O2 PLACED BACK AT 2 LITERS VIA N/C. O2 SAT 95 ON 2 LITERS. NOTIFIED OF RESULTS
[2016-08-03] MEDS ORDERED: SPIRIVA18 MCG INH (16:08)
[2016-08-03 22:31] VITALS: BP 132/66
[2016-08-04 06:33] VITALS: BP 110/60
--- NOTE | 2016-08-04 08:54 | PN- Housestaff ---
REHAN MCCALL,[facility] 08/04/16 0854: Subjective Follow-up For: COPD exacerbation Subjective: pt seen and examined this AM. he was sitting in chair comfortably, his ambulatory sats were around 88% yesterday, continues to be on 2 L of nasal cannula oxygen setting and mid 90s upon rest, dizziness to have cough productive of scant sputum. Afebrile white count has been stable. Review of Systems Constitutional: Denies: chills, fever. Cardiovascular: Denies: chest pain, palpitations. Respiratory: Reports: cough, sputum production. Denies: short of breath. Gastrointestinal: Denies: abdominal pain, constipation, diarrhea, nausea, vomiting. Genitourinary: Reports: no symptoms. Musculoskeletal: Reports: no symptoms. Objective Last 24 Hrs of Vital Signs/I&O Vital Signs Date Time Temp Pulse Resp B/P Pulse O2 O2 Flow FiO2 Ox Delivery Rate 08/04 0920 68 130/70 08/04 0919 68 130/70 08/04 0850 95 Nasal 2.0L Cannula 08/04 0800 94 Nasal 2.0L Cannula 08/04 0633 97.4 56 20 110/60 94 Nasal 2.0L Cannula 08/04 0000 96 Nasal 2.0L Cannula 08/03 2231 97.6 57 20 132/66 96 Nasal 2.0L Cannula 08/03 2050 97 Nasal 2.0L Cannula 08/03 1600 94 Nasal 2.0L Cannula 08/03 1428 97.1 45 22 152/60 98 Nasal 6.0L Cannula 08/03 1342 96 Nasal 2.0L Cannula Intake & Output 08/04 1600 08/04 0800 08/04 0000 Intake Total 0 480 Output Total Balance 0 480 Intake, IV 0 Intake, Oral 0 480 Number 0 1 Bowel Movements Physical Exam General Appearance: Alert, Oriented X3, Cooperative, No Acute Distress Lungs: Clear to Auscultation, Normal Air Movement Abdomen: Normal Bowel Sounds, Soft, No Tenderness Extremities: No Clubbing, No Cyanosis, No Edema Current Medications: Current Medications Sig/Melquiades Start time Last Medication Dose Route Stop Time Status Admin Acetaminophen 650 MG Q6P PRN 08/01 1900 AC PO Albuterol Sulfate 3 ML TID 08/02 1600 AC 08/04 INH 0844 Aspirin Buffered 162 MG ONCE A WEEK 08/01 1845 AC 08/01 PO 2300 Atenolol 50 MG DAILY 08/02 1000 AC 08/04 PO 0919 Azithromycin 250 MG DAILY 08/03 1606 AC 08/04 PO 0919 Azithromycin 500 MG DAILY@1900 08/01 1900 DC 08/02 Sodium Chloride 250 ML IV 1838 Finasteride 5 MG DAILY 08/02 1000 AC 08/04 PO 0920 Guaifenesin 600 MG Q12 08/02 1000 AC 08/04 PO 0919 Heparin Sodium 5,000 UNIT Q8 08/01 2200 AC 08/04 (Porcine) SC 0548 Ipratropium [place] 2.5 ML TID 08/02 1600 AC 08/04 INH 0850 Losartan Potassium 100 MG DAILY 08/02 1000 AC 08/04 PO 0919 Methylprednisolone 40 MG Q12 08/02 2200 DC 08/03 IV 2124 Nifedipine 30 MG DAILY 08/02 1000 AC 08/04 PO 0920 Prednisone 40 MG DAILY 08/04 1000 AC 08/04 PO 0919 Tamsulosin HCl 0.4 MG AT BEDTIME 08/01 2199 AC 08/03 PO 2127 Tiotropium [place] 1 PUF DAILY 08/04 1000 AC 08/04 INH 0920 Assessment/Plan Assessment: This is a 89-year-old male with a past medical history of a COPD, hypertension, borderline diabetes came in with a chief complaint of increased shortness of breath over the past couple of days. Which is upon presentation temperature 96.3, pulse 74, respiratory rate 22, blood pressure 180/78, satting in high 90s on Pertinent labs H&H 11.4 and 33.5, creatinine 1.2, BUN 24. Chest x-ray showed no acute cardiopulmonary process. We'll admit the patient to general floor and monitor for the following conditions. Acute exacerbation of COPD: Oxygen supplementation as needed to keep saturation above 90. TRC/nebs as needed In addition to by mouth prednisone today, patient to be discharged upon steroid taper He is advised to follow-up with his vision and Dr. Saldivar upon discharge. Azithromycin 500 mg daily, to complete a five-day course. History of hypertension: Continue home dose of nifedipine 30 mg daily and losartan 100 mg daily, atenolol 50 mg daily Benign prostatic hypertrophy: We'll continue home dose of finasteride 5 mg daily Diet : heart healthy Patient is DNR/DNI Problem List: 1. COPD exacerbation Pain Ratin Pain Location: none Pain Goal: Remain pain free Pain Plan: mild pp Tomorrow's Labs & Rationales: none patient to be discharged EMMY CHOI MD 08/04/16 1217: Attending MD Review Statement Attending Statement Attending MD Statement: examined this patient, discuss w/resident/PA/[facility], agreed w/resident/PA/[facility], reviewed EMR data (avail), discussed with nursing, discussed with case mgmt, amended to note Attending Assessment/Plan: Resting comfortably. Feels much better compared to admisssion. Denes sob with exertion. Reports minimal cough. He continues to require O2 as he desats with ambulation. 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
[2016-08-04 09:20] VITALS: BP 130/70
--- NOTE | 2016-08-04 11:38 | Discharge Summary ---
Visit Information Visit Dates Admission Date: 08/01/16 Discharge Date: 08/04/16 Hospital Course Course Attending Physician: EMMY CHOI M.D Primary Care Physician: KURT MCCALL,[facility] Course: This is a 89-year-old male with a past medical history of a COPD, hypertension, borderline diabetes came in with a chief complaint of increased shortness of breath, he failed outpatient prednisone therapy. He denied any cough, fever, chills. VItals upon presentation temperature 96.3, pulse 74, respiratory rate 22, blood pressure 180/78, satting in high 90s on Pertinent labs H&H 11.4 and 33.5, creatinine 1.2, BUN 24. Chest x-ray showed no acute cardiopulmonary process. Admitted the patient to general floor and monitor ED for the following conditions. Acute exacerbation of COPD: Oxygen supplementation as needed to keep saturation above 90/TRC/nebs as needed Patient was started on IV Solu-Medrol and azithromycin, steroids were tapered to by mouth and upon discharge patient was advised to complete prednisone taper and azithromycin to complete a five-day course. His ambulatory pulse ox was around 88%, this discharge on home oxygen. He is advised to follow-up with his vision and Dr. Saldivar upon discharge. History of hypertension: He was continued on home dose of nifedipine 30 mg daily and losartan 100 mg daily, atenolol 50 mg daily, blood pressure remained adequately controlled Benign prostatic hypertrophy: He was continued on home dose of finasteride 5 mg daily He has been eating heart healthy diet, subcutaneous heparin for DVT prophylaxis and Patient has been DNR/DNI. 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 in one week Medications at Discharge Discharge Medications: Continue taking these medications: Tamsulosin HCl (Flomax) 0.4 MG CAP.ER.24H 1 Capsule ORAL AT BEDTIME Comments: Last Taken:08/03/16 Time: 9:30 PM Fluticasone/Salmeterol (Advair 250-50 Diskus) 1 EACH BLST.W.DEV 1 Puff Inhale through mouth TWICE DAILY Qty = 60 Comments: Last Taken:NOT GIVEN IN HOSPITAL Time: Losartan Potassium (Losartan Potassium) 100 MG TABLET 1 Tablet ORAL DAILY Qty = 90 Comments: Last Taken:08/04/16 Time:0900 Nifedipine (Nifedical XL) 30 MG TAB.ER.24 1 Tablet ORAL DAILY Qty = 30 Comments: Last Taken:08/04/16 Time:0900 Atenolol (Atenolol) 50 MG TABLET 1 Tablet ORAL DAILY Qty = 90 Comments: Last Taken:08/04/16 Time:0900 Finasteride (Finasteride) 5 MG TABLET 1 Tablet ORAL DAILY Qty = 90 Comments: Last Taken:08/04/16 Time:0900 Aspirin (Ecotrin*) 81 MG TABLET.DR 2 Tablet ORAL Once a Week Comments: Last Taken:08/01/16 Time: 11 PM Red Yeast Rice (Red Yeast Rice) 600 MG TABLET 2 Tablet ORAL DAILY Comments: Last Taken:NOT GIVEN IN HOSPITAL Time: Ipratropium/Albuterol Sulfate (Iprat-Albut 0.5-3(2.5) MG/3 Ml) 0.5 MG-3 MG (2.5 MG BASE)/3 ML AMPUL.NEB 1 VIAL Inhale through mouth Q6H as needed for COPD Qty = 360 Comments: Last Taken:08/04/16 Time:0850 Ipratropium/Albuterol Sulfate (Combivent Respimat Inhal [place]) 20 MCG-100 MCG/ ACTUATION MIST.INHAL 1 PUFF Inhale through mouth DAILY as needed for COPD Qty = 4 Comments: Last Taken:NOT GIVEN IN HOSPITAL Time: Start taking the following new medications: Prednisone (Prednisone) 10 MG TABLET 1 Tablet ORAL See Instructions Qty = 30 No Refills Instructions: On Take 08/05-08/06 take 4 tabs daily 08/07-08/09 take 3 tabs daily 08/10-08/12 take 2 tabs daily 08/13-08/15 take 1 tab daily and then stop Comments: Last Taken:08/04/16 Time:0900 Azithromycin (Azithromycin) 250 MG TABLET 1 Tablet ORAL DAILY Days = 2 No Refills Comments: Last Taken:08/04/16 Time:0900 Copies To: EMMY CHOI M.D; TRINIDAD MCCALL,Steven HARRIS; BOOGIE MCCALL,IBRAHIMA Santiago. Attending MD Review Statement Documenting Attending: EMMY CHOI M.D Other Findings: I have reviewed the discharge summary.
[2016-08-04] MEDS ORDERED: PREDNISONE10 M2 PO (13:20)
[2016-11-22] MEDS ORDERED: MULTI-DAY VITA1 EACH PO (15:32)
[2016-11-22] MEDS ORDERED: VITAMIN B-121000 MC3 PO (15:32)
[2016-11-22] MEDS ORDERED: FUROSEMIDE20 M1 PO (15:33)
[2016-11-23] MEDS ORDERED: PREDNISONE10 M2 PO (14:12)
[2016-11-24] MEDS ORDERED: PREDNISONE10 M2 PO (08:28)
[2016-11-24] MEDS ORDERED: AUGMENTIN 875-1 EACH PO (08:35)
[2016-11-24] MEDS ORDERED: FUROSEMIDE20 M1 PO (12:02)
[2016-11-25] MEDS ORDERED: AVELOX400 M1 PO (08:58)
== END 2016-08-04 13:59 | DRG 192 ==
LOC: ERH 12:48 → 2NA 17:16 → ERHI 17:16 → ENPENDDIS 17:16 → 2NA 19:22
PROVIDERS: Internal Medicine; Physician Assistant Medical; ADMIT Internal Medicine
DX: J44.1 Chronic obstructive pulmonary disease with (acute) exacerbation (principal); Z99.81 Dependence on supplemental oxygen; E11.9 Type 2 diabetes mellitus without complications; I10 Essential (primary) hypertension; Z87.891 Personal history of nicotine dependence; N40.0 Benign prostatic hyperplasia without lower urinary tract symptoms
CPT/HCPCS: 2NAP; 36415; 81001; 82436; 87804; 87804-59; 93005; 93010; 96374; 97001-GP; 97161-GP; J0456; J1644; J2920; J2930; J3490; J7040